=== PATIENT | female | born 1975 | race Two or more races ===

== ENCOUNTER 2019-03-24 11:17 | Emergency (ER) | payer MEDICAID, OTHER ==
[~2019-03-24] VITALS: Ht 162.6 cm; Wt 77.1 kg
[2019-03-24] MEDS ORDERED: cloNIDine HCL 0.1 MG TAB PO ONE (14:00)
[2019-03-24 15:01] VITALS: BP 159/92
== END 2019-03-24 15:15 | disposition home or self-care (01) ==
LOC: ER 11:19
DX: I16.0 Hypertensive urgency (principal); I10 Essential (primary) hypertension; R51 Headache; R47.81 Slurred speech; Z90.710 Acquired absence of both cervix and uterus
CPT/HCPCS: 70450

== ENCOUNTER 2019-10-12 09:08 | Emergency (ER) | payer MEDICAID ==
[~2019-10-12] VITALS: Ht 157.5 cm; Wt 74.8 kg
[2019-10-12 09:14] VITALS: BP 147/103
[2019-10-12] MEDS ORDERED: DexAMETHasone SOD PHOS 10MG/1ML VIAL INJ IM ONE (11:15)
[2019-10-12] MEDS ORDERED: METHOCARBAMOL 500 MG TAB PO ONE (11:15)
[2019-10-12] MEDS ORDERED: ACETAMINOPHEN 325 MG TAB PO ONE (11:15)
== END 2019-10-12 11:52 | disposition home or self-care (01) ==
LOC: ER 09:10
DX: M62.830 Muscle spasm of back (principal); M54.2 Cervicalgia; I10 Essential (primary) hypertension; Z90.710 Acquired absence of both cervix and uterus
CPT/HCPCS: 93005; 96372; 99283; J1100